=== PATIENT | male | born 2000 | race Caucasian/White ===

== ENCOUNTER 2021-06-04 14:33 | Emergency (ER) | payer OTHER ==
[2021-06-04 14:41] VITALS: BP 135/89; PULSE 70; RESP 17; TEMP 98.4
[2021-06-04 15:10] LABS: Glucose,Whole Blood 74 mg/dL (75-99)
[2021-06-04 15:35] LABS: Glucose,Whole Blood 100 mg/dL (75-99)
[2021-06-04] MEDS ORDERED: SODIUM CHLORIDE 0.9% 1,000 ML IV STA (15:36)
--- NOTE | 2021-06-04 15:43 | ED ---
General Adult HPI - General Chief complaint: Syncope Stated complaint: syncope, hit head Time Seen by Provider: 06/04/21 15:25 Source: patient, family, EMS, RN notes reviewed Mode of arrival: EMS Limitations: no limitations - History of Present Illness Initial comments: 20-year-old underweight white male, alert and oriented 4, presents to the emergency room with his family member after a syncopal episode in the bathroom today. Mother states that she heard him fall in the bathroom when in and his pants were down but he was on the floor blocking the door. When she was able to get in she found that he had a laceration to the back of his head. She states that he was unresponsive for a couple of minutes but then he awoke and was normal. Patient denies any pain or headache. There is a small puncture wound to his occiput. Mother states that he has not been eating well and he has been depressed. He just quit his job and is under a lot of stress. Patient is tearful and admits to being depressed but not suicidal or homicidal. He has not had syncopal episodes in the past he has no history of seizures. Does not take any medicine on a daily basis. -: hour(s) (1) Location: head Radiation: non-radiation Severity scale (1-10): 0 Associated Symptoms: loss of appetite, other (Depression) - Related Data Allergies Allergy/AdvReac Type Severity Reaction Status Date / Time No Known Allergies Allergy Verified 06/04/21 14:41 Review of Systems ROS Statement: Those systems with pertinent positive or pertinent negative responses have been documented in the HPI. ROS Other: All systems not noted in ROS Statement are negative. General Exam Limitations: no limitations General appearance: alert, in no apparent distress Head exam: Present: normocephalic, other (Small puncture wound noted to the occiput no active bleeding) Eye exam: Present: normal appearance, PERRL, EOMI. Absent: scleral icterus, conjunctival injection, periorbital swelling ENT exam: Present: normal exam, normal oropharynx, mucous membranes moist Neck exam: Present: normal inspection, full ROM. Absent: tenderness, meningismus, lymphadenopathy Respiratory exam: Present: normal lung sounds bilaterally. Absent: respiratory distress, wheezes, rales, rhonchi, stridor, chest wall tenderness, accessory muscle use Cardiovascular Exam: Present: regular rate, normal rhythm, normal heart sounds. Absent: systolic murmur, diastolic murmur, rubs, gallop, clicks GI/Abdominal exam: Present: soft, normal bowel sounds. Absent: distended, tenderness, guarding, rebound, rigid Extremities exam: Present: full ROM, normal capillary refill. Absent: tenderness, pedal edema, joint swelling, calf tenderness Back exam: Present: normal inspection, full ROM. Absent: tenderness, CVA tenderness (R), CVA tenderness (L), muscle spasm, paraspinal tenderness, vertebral tenderness, rash noted Expanded Back exam: Present: saddle anesthesia Back exam: Negative Straight Leg Raising: Left, Right Neurological exam: Present: alert, oriented X3, CN II-XII intact Expanded Patient oriented to: Present: person, place, time Speech: Present: fluid speech Cranial nerves: EOM's Intact: Normal, Gag Reflex: Normal, Tongue Deviation: Normal Cerebellar function: Finger to Nose: Normal, Heel to Berger: Normal Motor strength exam: RUE: 5, LUE: 5, RLE: 5, LLE: 5 Eye Response: (4) open spontaneously Motor Response: (6) obeys commands Verbal Response: (5) oriented [place] Total: 15 Psychiatric exam: Present: depressed, other (Quiet). Absent: homicidal ideation, suicidal ideation Skin exam: Present: warm, dry, intact, normal color. Absent: rash, cyanosis, diaphoretic, petechiae, pallor Course Vital Signs 06/04/21 14:34 Temperature 98.4 F Pulse Rate 70 Respiratory 17 Rate Blood Pressure 135/89 O2 Sat by Pulse 100 Oximetry EKG Findings - EKG Results: EKG: sinus rhythm (Ventricular rate 65, DE interval of .114, QRS 0.86, QTC 0.407) Medical Decision Making - Medical Decision Making CBC and electrolytes are unremarkable. Patient's glucose was 74 upon arrival was repeated and 107 in the emergency room. His troponin is negative at 0.012 and his EKG shows sinus rhythm rate [address] elevation. His urine is clear with no ketones. His urine drug screen shows marijuana. CT of the brain shows no acute intracranial process, masses or intracranial hemorrhage. There is no evidence of fracture. Chest x-ray shows lungs that are clear with no evidence of infiltrate or masses. This is likely a vasovagal syncope as patient was using the bathroom at the time. He had no postictal state per the mother. He does admit to depression and not eating well. He denies any suicidal or homicidal ideations. He'll be directed to follow up with his primary care doctor. The puncture wound to his occiput was irrigated and put bacitracin dressing . Patient was given something to eat. His tetanus shot was last upda annette 2 years ago per mom. They'll be directed to follow up with her primary care doctor for continuation of care return to the emergency room with any new or worsening symptoms including seizure activity or altered mental status. - Lab Data Result diagrams: 06/04/21 15:44 06/04/21 15:44 Lab Results 06/04/21 06/04/21 06/04/21 Range/Units 15:08 15:33 15:44 WBC 11.4 H (4.0-11.0) k/uL RBC 5.16 (4.30-5.90) m/uL Hgb 16.4 (13.0-17.5) gm/dL Hct 47.5 (39.0-53.0) % MCV 92.1 (80.0-100.0) fL MCH 31.8 (25.0-35.0) pg MCHC 34.6 (31.0-37.0) g/dL RDW 12.6 (11.5-15.5) % Plt Count 227 (150-450) k/uL MPV 6.5 Neutrophils % 89 % Lymphocytes % 6 % Monocytes % 3 % Eosinophils % 1 % Basophils % 1 % Neutrophils # 10.1 H (1.3-7.7) k/uL Lymphocytes # 0.7 L (1.0-4.8) k/uL Monocytes # 0.4 (0-1.0) k/uL Eosinophils # 0.1 (0-0.7) k/uL Basophils # 0.1 (0-0.2) k/uL PT (9.0-12.0) sec INR (<1.2) APTT (22.0-30.0) sec Sodium (137-145) mmol/L Potassium (3.5-5.1) mmol/L Chloride (98-107) mmol/L Carbon Dioxide (22-30) mmol/L Anion Gap mmol/L BUN (9-20) mg/dL Creatinine (0.66-1.25) mg/dL Est GFR (CKD-EPI)AfAm (>60 ml/min/1.73 sqM) Est GFR (CKD-EPI)NonAf (>60 ml/min/1.73 sqM) Glucose (74-99) mg/dL POC Glucose (mg/dL) 74 L 100 H (75-99) mg/dL POC Glu Print Finisher GABRIELLA VickersorinChela Nicole Calcium (8.4-10.2) mg/dL Magnesium (1.6-2.3) mg/dL Total Bilirubin (0.2-1.3) mg/dL AST (17-59) U/L ALT (4-49) U/L Alkaline Phosphatase (38-126) U/L Troponin I (0.000-0.034) ng/mL Total Protein (6.3-8.2) g/dL Albumin (3.5-5.0) g/dL Urine Color Urine Appearance (Clear) Urine pH (5.0-8.0) Ur Specific Omer (1.001-1.035) Urine Protein (Negative) Urine Glucose (UA) (Negative) Urine Ketones (Negative) Urine Blood (Negative) Urine Nitrite (Negative) Urine Bilirubin (Negative) Urine Urobilinogen (<2.0) mg/dL Ur Leukocyte Esterase (Negative) Urine Opiates Screen (NotDetected) Ur Oxycodone Screen (NotDetected) Urine Methadone Screen (NotDetected) Ur Propoxyphene Screen (NotDetected) Ur Barbiturates Screen (NotDetected) U Tricyclic Antidepress (NotDetected) Ur Phencyclidine Scrn (NotDetected) Ur Amphetamines Screen (NotDetected) U Methamphetamines Scrn (NotDetected) U Benzodiazepines Scrn (NotDetected) Urine Cocaine Screen (NotDetected) U Marijuana (THC) Screen (NotDetected) 06/04/21 06/04/21 06/04/21 Range/Units 15:44 15:44 15:44 WBC (4.0-11.0) k/uL RBC (4.30-5.90) m/uL Hgb (13.0-17.5) gm/dL Hct (39.0-53.0) % MCV (80.0-100.0) fL MCH (25.0-35.0) pg MCHC (31.0-37.0) g/dL RDW (11.5-15.5) % Plt Count (150-450) k/uL MPV Neutrophils % % Lymphocytes % % Monocytes % % Eosinophils % % Basophils % % Neutrophils # (1.3-7.7) k/uL Lymphocytes # (1.0-4.8) k/uL Monocytes # (0-1.0) k/uL Eosinophils # (0-0.7) k/uL Basophils # (0-0.2) k/uL PT 11.5 (9.0-12.0) sec INR 1.1 (<1.2) APTT 19.2 L (22.0-30.0) sec Sodium 142 (137-145) mmol/L Potassium 4.0 (3.5-5.1) mmol/L Chloride 106 (98-107) mmol/L Carbon Dioxide 27 (22-30) mmol/L Anion Gap 9 mmol/L BUN 13 (9-20) mg/dL Creatinine 0.75 (0.66-1.25) mg/dL Est GFR (CKD-EPI)AfAm >90 (>60 ml/min/1.73 sqM) Est GFR (CKD-EPI)NonAf >90 (>60 ml/min/1.73 sqM) Glucose 107 H (74-99) mg/dL POC Glucose (mg/dL) (75-99) mg/dL POC Glu Print Finisher ID Calcium 10.0 (8.4-10.2) mg/dL Magnesium 2.1 (1.6-2.3) mg/dL Total Bilirubin 0.3 (0.2-1.3) mg/dL AST 32 (17-59) U/L ALT 19 (4-49) U/L Alkaline Phosphatase 78 (38-126) U/L Troponin I <0.012 (0.000-0.034) ng/mL Total Protein 7.3 (6.3-8.2) g/dL Albumin 5.2 H (3.5-5.0) g/dL Urine Color Urine Appearance (Clear) Urine pH (5.0-8.0) Ur Specific Omer (1.001-1.035) Urine Protein (Negative) Urine Glucose (UA) (Negative) Urine Ketones (Negative) Urine Blood (Negative) Urine Nitrite (Negative) Urine Bilirubin (Negative) Urine Urobilinogen (<2.0) mg/dL Ur Leukocyte Esterase (Negative) Urine Opiates Screen (NotDetected) Ur Oxycodone Screen (NotDetected) Urine Methadone Screen (NotDetected) Ur Propoxyphene Screen (NotDetected) Ur Barbiturates Screen (NotDetected) U Tricyclic Antidepress (NotDetected) Ur Phencyclidine Scrn (NotDetected) Ur Amphetamines Screen (NotDetected) U Methamphetamines Scrn (NotDetected) U Benzodiazepines Scrn (NotDetected) Urine Cocaine Screen (NotDetected) U Marijuana (THC) Screen (NotDetected) 06/04/21 06/04/21 Range/Units 16:11 16:11 WBC (4.0-11.0) k/uL RBC (4.30-5.90) m/uL Hgb (13.0-17.5) gm/dL Hct (39.0-53.0) % MCV (80.0-100.0) fL MCH (25.0-35.0) pg MCHC (31.0-37.0) g/dL RDW (11.5-15.5) % Plt Count (150-450) k/uL MPV Neutrophils % % Lymphocytes % % Monocytes % % Eosinophils % % Basophils % % Neutrophils # (1.3-7.7) k/uL Lymphocytes # (1.0-4.8) k/uL Monocytes # (0-1.0) k/uL Eosinophils # (0-0.7) k/uL Basophils # (0-0.2) k/uL PT (9.0-12.0) sec INR (<1.2) APTT (22.0-30.0) sec Sodium (137-145) mmol/L Potassium (3.5-5.1) mmol/L Chloride (98-107) mmol/L Carbon Dioxide (22-30) mmol/L Anion Gap mmol/L BUN (9-20) mg/dL Creatinine (0.66-1.25) mg/dL Est GFR (CKD-EPI)AfAm (>60 ml/min/1.73 sqM) Est GFR (CKD-EPI)NonAf (>60 ml/min/1.73 sqM) Glucose (74-99) mg/dL POC Glucose (mg/dL) (75-99) mg/dL POC Glu Print Finisher ID Calcium (8.4-10.2) mg/dL Magnesium (1.6-2.3) mg/dL Total Bilirubin (0.2-1.3) mg/dL AST (17-59) U/L ALT (4-49) U/L Alkaline Phosphatase (38-126) U/L Troponin I (0.000-0.034) ng/mL Total Protein (6.3-8.2) g/dL Albumin (3.5-5.0) g/dL Urine Color Light Yellow Urine Appearance Clear (Clear) Urine pH 7.0 (5.0-8.0) Ur Specific Omer 1.008 (1.001-1.035) Urine Protein Negative (Negative) Urine Glucose (UA) Negative (Negative) Urine Ketones Negative (Negative) Urine Blood Negative (Negative) Urine Nitrite Negative (Negative) Urine Bilirubin Negative (Negative) Urine Urobilinogen <2.0 (<2.0) mg/dL Ur Leukocyte Esterase Negative (Negative) Urine Opiates Screen Not Detected (NotDetected) Ur Oxycodone Screen Not Detected (NotDetected) Urine Methadone Screen Not Detected (NotDetected) Ur Propoxyphene Screen Not Detected (NotDetected) Ur Barbiturates Screen Not Detected (NotDetected) U Tricyclic Antidepress Not Detected (NotDetected) Ur Phencyclidine Scrn Not Detected (NotDetected) Ur Amphetamines Screen Not Detected (NotDetected) U Methamphetamines Scrn Not Detected (NotDetected) U Benzodiazepines Scrn Not Detected (NotDetected) Urine Cocaine Screen Not Detected (NotDetected) U Marijuana (THC) Screen Detected H (NotDetected) Disposition Clinical Impression: Vasovagal syncope, Depressed Disposition: HOME SELF-CARE Condition: Good Additional Instructions: Return to the emergency room with any new or worsening symptoms including headache, seizure activity, chest pain or shortness of breath. Follow-up with the primary care doctor this week. Call the mobile crisis number for any worsening depression or suicidal ideations at [phone]. Is patient prescribed a controlled substance at d/c from ED?: No Referrals: None,Stated [Primary Care Provider] - 1-2 days Eitan Martin MD [STAFF PHYSICIAN] - 1-2 days Time of Disposition: 17:21
[2021-06-04 16:16] LABS: African American GFR (CKD) >90 (>60 ml/min/1.73 sqM); Anion Gap 9 mmol/L; Blood Urea Nitrogen 13 mg/dL (9-20); Carbon Dioxide 27 mmol/L (22-30); Chloride 106 mmol/L (98-107); Glucose 107 mg/dL (74-99); Non-African American GFR(CKD) >90 (>60 ml/min/1.73 sqM); Sodium 142 mmol/L (137-145)
[2021-06-04 16:17] LABS: ALT 19 U/L (4-49); AST 32 U/L (17-59); Albumin 5.2 g/dL (3.5-5.0); Alkaline Phosphatase 78 U/L (38-126); Magnesium 2.1 mg/dL (1.6-2.3); Total Bilirubin 0.3 mg/dL (0.2-1.3); Total Protein 7.3 g/dL (6.3-8.2)
[2021-06-04 16:20] LABS: Basophils # (A) 0.1 k/uL (0-0.2); Basophils % (A) 1 %; Eosinophils # (A) 0.1 k/uL (0-0.7); Eosinophils % (A) 1 %; HCT 47.5 % (39.0-53.0); HGB 16.4 gm/dL (13.0-17.5); Lymphocytes # (A) 0.7 k/uL (1.0-4.8); Lymphocytes % (A) 6 %; MCH 31.8 pg (25.0-35.0); MCHC 34.6 g/dL (31.0-37.0); MCV 92.1 fL (80.0-100.0); Mean Platelet Volume 6.5; Monocytes # (A) 0.4 k/uL (0-1.0); Monocytes % (A) 3 %; Neutrophils # (A) 10.1 k/uL (1.3-7.7); Neutrophils % (A) 89 %; Platelet Count 227 k/uL (150-450); RBC 5.16 m/uL (4.30-5.90); RDW 12.6 % (11.5-15.5); WBC 11.4 k/uL (4.0-11.0)
[2021-06-04] MEDS ORDERED: BACITRACIN OINT 1 EACH PACKET TOPICAL ONE (16:26)
[2021-06-04 16:27] LABS: Appearance,Urine Clear (Clear); Bilirubin,Urine Negative (Negative); Blood,Urine Negative (Negative); Color,Urine Light Yellow; Glucose,Urine (UA) Negative (Negative); Ketones,Urine Negative (Negative); Leukocyte Esterase,Urine Negative (Negative); Nitrite,Urine Negative (Negative); Protein,Urine Negative (Negative); Specific Gravity,Urine 1.008 (1.001-1.035); Urobilinogen,Urine <2.0 mg/dL (<2.0)
[2021-06-04 16:28] LABS: INR 1.1 (<1.2); Prothrombin Time 11.5 sec (9.0-12.0)
[2021-06-04 16:32] LABS: Partial Thromboplastin Time 19.2 sec (22.0-30.0)
[2021-06-04 16:40] LABS: Amphetamine Screen,Urine Not Detected (NotDetected); Barbiturate Screen,Urine Not Detected (NotDetected); Benzodiazepines Screen,Urine Not Detected (NotDetected); Cocaine Screen,Urine Not Detected (NotDetected); Methadone Screen, Urine Not Detected (NotDetected); Opiate Screen,Urine Not Detected (NotDetected); Oxycodone Screen, Urine Not Detected (NotDetected); Phencyclidine Screen,Urine Not Detected (NotDetected); Tricyclic Antidepressant,Urine Not Detected (NotDetected); Urn Cannabinoid Scrn Detected (NotDetected)
--- NOTE | 2021-06-04 16:41 | CT ---
EXAMINATION TYPE: CT brain wo con DATE OF EXAM: 06/04/2021 COMPARISON: None INDICATION: Syncope with posterior injury and laceration. DLP: 1099.4 mGycm, Automated exposure control for dose reduction was used. CONTRAST: None CT of the brain is performed utilizing 3 mm thick sections through the posterior fossa and 3 mm thick sections through the remaining calvarium. Study is performed within 24 hours of arrival to the hosp ital. No abnormal hyperdensity is present to suggest an acute intracranial hemorrhage. No mass lesion is evident. No acute infarcts are evident. Ventricles and sulci are appropriate for the patient age. Paranasal sinuses and mastoid air cells within the [id number] are clear. Soft tissues appear normal. Laceration is not identified. No acute fractures are evident. IMPRESSIONS: 1. No acute intracranial process.
--- NOTE | 2021-06-04 16:48 | XR ---
EXAMINATION TYPE: XR chest 2V DATE OF EXAM: 06/04/2021 COMPARISON: NONE HISTORY: Syncope TECHNIQUE: 2 views FINDINGS: Heart and mediastinum are normal. Lungs are clear. Diaphragm is normal. Bony thorax is inta ct. Pulmonary vascularity is normal. IMPRESSION: Normal chest.
== END 2021-06-04 17:49 | disposition home or self-care (01) ==
LOC: EC 14:33
DX: R55 Syncope and collapse (principal); F32.9 Major depressive disorder, single episode, unspecified; R63.0 Anorexia
CPT/HCPCS: 36415; 70450; 71046; 80053; 80306; 81003; 83735; 84484; 85025; 85610; 85730; 93005; 96360; 99285

== ENCOUNTER 2024-11-16 02:51 | Inpatient (IN) | payer MEDICAID, OTHER ==
--- NOTE | 2024-11-16 04:28 | ED ---
General Adult HPI <Liam Miramontes - Last Filed: 11/16/24 09:39> - General Source: patient Mode of arrival: ambulatory <Triny Cano - Last Filed: 11/18/24 14:51> - General Chief complaint: Psychiatric Symptoms Stated complaint: Petition Time Seen by Provider: 11/16/24 04:02 - History of Present Illness Initial comments: Patient is a 24-year-old gentleman with a past medical history of psychosis PTSD presenting today via [place] [employer] for paranoia. History limited as patient refused to answer questions. Per police, patient had run away from home and stayed the night homeless elder. He claimed that people are following him. He found a cane and took it to local [employer] where he stated that people were trying to follow him, had broken into his house and the cane would be used to defend himself. While awaiting evaluation in the emergency department he became combative with police, tore off his shirt and needed to be placed in handcuffs. (Triny Cano) - Related Data Previous Rx's Medication Instructions Recorded ARIPiprazole [Abilify] 10 mg PO HS 30 Days #30 tab 11/13/24 Melatonin 10 mg PO HS 30 Days #60 tab 11/13/24 Sertraline [Zoloft] 50 mg PO HS 30 Days #30 tab 11/13/24 Allergies Allergy/AdvReac Type Severity Reaction Status Date / Time No Known Allergies Allergy Verified 11/16/24 08:57 Review of Systems ROS Other: All systems not noted in ROS Statement are negative. <Liam Miramontes - Last Filed: 11/16/24 09:39> ROS Other: All systems not noted in ROS Statement are negative. Limitations: ROS unobtainable due to patients medical condition <Triny Cano - Last Filed: 11/18/24 14:51> ROS Statement: Those systems with pertinent positive or pertinent negative responses have been documented in the HPI. Past Medical History Past Medical History: No Reported History Additional Past Medical History / Comment(s): eye issues History of Any Multi-Drug Resistant Organisms: None Reported Past Surgical History: No Surgical Hx Reported Additional Past Surgical History / Comment(s): Polydactyl sx as child to remove extra digit on left thumb of Left hand Past Anesthesia/Blood Transfusion Reactions: No Reported Reaction Past Psychological History: PTSD Smoking Status: Vaper Past Alcohol Use History: Occasional Past Drug Use History: Marijuana - Past Family History Mother History Unknown: Yes <Triny - Last Filed: 11/18/24 14:51> General Exam <Triny Cano - Last Filed: 11/18/24 14:51> - General Exam Comments Initial Comments: Vital signs reviewed General: Well-appearing, nontoxic, no acute distress. Head: Normocephalic, atraumatic Eyes: PERRLA, EOMI ENT: Airway patent Chest: Nonlabored breathing Skin: No visual rash, normal skin tone, small abrasions on heels posteriorly where boots chafed against skin Neuro: Alert, unable to assess orientation given patient refuses to answer questions, no focal neurologic deficits Musculoskeletal: No gross abnormalities, no physical evidence of injuries Psychiatric: Does not make eye contact, does not speak to myself or staff when brought back to room, guarded affect, when handcuffs removed by PD, patient does remain calm (Triny Cano) Course Vital Signs 11/16/24 11/16/24 11/16/24 03:00 06:48 10:48 Temperature 98.4 F 97.1 F L 98.3 F Pulse Rate 121 H 113 H 101 H Respiratory 18 16 16 Rate Blood Pressure 112/78 122/77 106/66 O2 Sat by Pulse 98 97 97 Oximetry Medical Decision Making <Liam Miramontes - Last Filed: 11/16/24 09:39> <Triny Cano - Last Filed: 11/18/24 14:51> - Medical Decision Making Patient signed out to me pending results of EPS evaluation. Was medically cleared by previous provider. EPS evaluated the patient and determined that he does meet inpatient criteria for admission. Patient was already petitioned by police and I completed the clinical certificate. I updated the patient and he was in agreement with the plan. Diagnosis/symptom? @ -Suicidal ideation, acute psychosis Acute, or Chronic, or Acute on Chronic? @ -Acute Uncomplicated (without systemic symptoms) or Complicated (systemic symptoms)? @ -Complicated Side effects of treatment? @ -None Exacerbation, Progression, or Severe Exacerbation] @ -No Poses a threat to life or bodily function? @ -Potentially, yes (Liam Miramontes) Was pt. sent in by a medical professional or institution (, PA, HORSE BUYER, urgent care, hospital, or [facility]...) When possible be specific @ -No Did you speak to anyone other than the patient for history (EMS, parent, family, police, friend...)? What history was obtained from this source @Spoke with police who provided history Did you review nursing and triage notes (agree or disagree)? Why? @ -I reviewed nursing and triage notes Were old charts reviewed (outside hosp., previous admission, EMS record, old EKG, old radiological studies, urgent care reports/EKG's, [facility] records)? Report findings @ -Medical records reviewed reviewed ER note from 11/28 and patient presented for psychiatric symptoms, CT brain done at that time showed no acute process, patient was admitted to psychiatric unit and it appears he was discharged on 11/13/2024, it also appears he presented on 11/15/2024 for suicidal symptoms and chest tightness, chest x-ray done at the time showed no acute process patient ultimately discharged Differential Diagnosis (chest pain, altered mental status, abdominal pain women, abdominal pain men, vaginal bleeding, weakness, fever, dyspnea, syncope, headache, dizziness, GI bleed, back pain, seizure, CVA, palpatations, mental health, musculoskeletal)? @ -Differential Mental Health Depression, anxiety, bipolar, psychosis, schizophrenia, borderline personality, situational depression, adjustment disorder, behavioral disorder, brain tumor, malingering, substance abuse, encephalopathy, medication reaction, dementia, hypothyroidism, degenerative neurologic disorder, lupus.... This is not meant to be all-inclusive list EKG interpreted by me (3pts min.). @ -As above X-rays interpreted by me (1pt min.). @ -None done CT interpreted by me (1pt min.). @ -None done U/S interpreted by me (1pt. min.). @ -None done What testing was considered but not performed or refused? (CT, X-rays, U/S, labs)? Why? @ -None What meds were considered but not given or refused? Why? @ -None Did you discuss the management of the patient with other professionals (professionals i.e. , PA, HORSE BUYER, lab, RT, psych nurse, health and social care teacher, public relations counselor, teacher, special forces officer, housing case manager)? Give summary @ -No Was smoking cessation discussed for >3mins.? @ -No Was critical care preformed (if so, how long)? @ -No Were there social determinants of health that impacted care today? How? (Homelessness, low income, unemployed, alcoholism, drug addiction, transportation, low edu. Level, literacy, decrease access to med. care, custodial, rehab)? @ -No Was there de-escalation of care discussed even if they declined (Discuss DNR or withdrawal of care, Hospice)? @ -No What co-morbidities impacted this encounter? (DM, HTN, Smoking, COPD, CAD, Cancer, CVA, ARF, Chemo, Hep., AIDS, mental health diagnosis, sleep apnea, morbid obesity)? @Psychosis, PTSD Was patient admitted / discharged? Hospital course, mention meds given and route, prescriptions, significant lab abnormalities, going to OR and other per tinent info. @ -Sgned out to oncoming physician pending EPS eval- Patient is a 24 y/o male PMH psychosis, PTSD, recent admission for mental health evaluation and treatment, presenting in police custody after being found at a gas station with a "cane" that he was planning to use as defense for the people that are "following him". While in waiting room awaiting rooming, pt became angry, confrontational, and tore his shirt off, prompting PD to place pt in handcuffs. Pt brought back to his room in handcuffs and seen immediately by myself. At this time, pt is not making eye contact or answering any questions. Removed from handcuffs and remained very still in bed. Exam was limited in order to maintaini staff safety, as pt was recently combative with PD. Pt has hx of similar and has no evidence of injury. Mildly tachycardic on arrival, suspect 2/2 agitation, therefor I do not feel additional labs or imaging are indicated currently. KASSIE 0.00. Pt medically cleared for EPS eval. Of note, as I went to check on pt later, he appeared to be tremulous and appearing anxious and fearful, hiding his head under his blanket, so he was given PO xanax and appeared much more comfortable afterwards. Pt signed out to oncoming physician, Dr. Miramontes, pending EPS eval. (Triny Cano) - Lab Data Lab Results 11/16/24 11/16/24 Range/Units 05:00 08:09 TSH 1.140 (0.465-4.680) mIU/L Influenza Type A (PCR) Not Detected (Not Detectd) Influenza Type B (PCR) Not Detected (Not Detectd) RSV (PCR) Not Detected (Not Detectd) SARS-CoV-2 (PCR) Not Detected (Not Detectd) Disposition <Liam Miramontes - Last Filed: 11/16/24 09:39> <Triny Cano - Last Filed: 11/18/24 14:51> Clinical Impression: Paranoia (psychosis), Acute psychosis, Suicidal ideation Disposition: TRANSFER TO PSYCH HOSP/UNIT Condition: Stable
[2024-11-16 05:47] LABS: Influenza A Not Detected (Not Detectd); Influenza B Not Detected (Not Detectd); RSV Not Detected (Not Detectd)
[2024-11-16] MEDS: ALPRAZolam 1 MG TAB PO STA (06:12)
[2024-11-16] MEDS ORDERED: MAG HYDROX/AL HYDROX/SIMETH 355 ML BOTTLE PO PRN (11:15)
[2024-11-16] MEDS ORDERED: ACETAMINOPHEN TAB 325 MG TAB PO PRN (11:15)
[2024-11-16] MEDS ORDERED: MAGNESIUM HYDROXIDE 2,400 MG/30 ML CUP PO PRN (11:15)
[2024-11-16] MEDS: haloperidoL 5 MG TAB PO PRN (12:17)
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
[2024-11-16 20:11] LABS: Urine Alcohol Negative (Negative); Urine Barbiturate Negative (Negative); Urine Cocaine Negative (Negative); Urine Methadone Negative (Negative); Urine Opiates Negative (Negative); Urine Phencyclidine Negative (Negative)
[2024-11-16] MEDS: PALIPERIDONE 3 MG TAB.ER.24 PO SCH (20:36)
[2024-11-16] MEDS: SERTRALINE 50 MG TAB PO SCH (20:36)
[2024-11-16] MEDS: MELATONIN 5 MG TABLET PO SCH (20:36)
[2024-11-16] MEDS ORDERED: ARIPiprazole 10 MG TAB PO SCH (21:00)
[2024-11-17] MEDS: PALIPERIDONE 3 MG TAB.ER.24 PO SCH (10:11)
[2024-11-17 11:23] VITALS: BMI 17.8
--- NOTE | 2024-11-17 11:52 | P.PN ---
Progress Note - Text Progress Note Date: 11/17/24 Interval History: Patient was seen laying in bed and was directable and agreeable to speak with policy writer in the room. Some increase in latency was noted, flat affect. He continues to report paranoia, denying any improvement since yesterday. He reports decreased appetite but was unable to express how he slept overnight. He also was unable to report any auditory hallucinations however he did mention suicidal ideations today. Patient did appear depressed with low energy and mood, largely isolative to his room. He did receive as needed Haldol yesterday for his paranoia however he was unable to express any benefits from this medication. At this time patient denies any homicidal ideations, intent or plan. Patient denies any visual hallucinations and denies any paranoia or delusions. Patient denies any side effects from the medications and has been compliant with meds. Mental Status Exam: General Appearance: Patient appears to be stated age is fatigued but directable, and cooperative. Behavior: Patient is calmly laying without any agitated behavior. Speech: Patient's speech is fluent and nonpressured. Mood/Affect: Mood is low, affect is congruent and constricted. Suicidality/Homicidality: Patient denies having any homicidal ideation intent or plan. He is reporting suicidal ideations today Perceptions: Patient denies any visual hallucinations however he reports being unsure about auditory hallucinations, he did not appear internally preoccupied Though content/process: There is no evidence of any delusional thought content and thought process is linear. He does report paranoia Memory and concentration: AOX3, grossly intact for the purposes of this session Judgment and insight: Improving mildly Assessment Schizoaffective disorder, depressed type History of PTSD Plan: -Patient continues to meet criteria for inpatient psychiatric admission for symptom stabilization and safety. Patient has not signed adult voluntary form and medication consent and was placed in patient's chart. -Medications: Increase Invega to 3 mg twice daily for psychosis, increase Zoloft to 100 mg at bedtime for depression, continue melatonin 10 mg at bedtime for insomnia. Ultimate plan is to transition to Invega Sustenna given patient's history of nonadherence -When necessary Ativan and Haldol for agitation/aggression. -Labs: Reviewed -SW on board for discharge planning. Encouraged the patient to participate in milieu. Currently awaiting deferral with vice president quality assurance and court date.
--- NOTE | 2024-11-17 13:10 | P.CONS ---
History of Present Illness - Reason for Consult Consult date: 11/17/24 medical management Requesting physician: Noemi Rojo - History of Present Illness This is a pleasant 24-year-old male with medical history significant for PTSD. Patient comes in brought in by police secondary to thoughts of paranoia and feeling people are following him. During my assessment patient has not elaborated on any of the reasons leading up to his admission. He denies any suicidal or homicidal ideations currently. He has no acute complaints no chest pain or shortness of breath no nausea vomiting or diarrhea. He is awake alert and oriented he is appropriate. Patient was recently admitted for mental health treatment and evaluation however was noncompliant with his [facility] mental health follow-up on discharge. He states that currently he is homeless and does not have much family support at this time. his UDS was positive for benzodiazepines. He is currently afebrile 97.6, heart rate 107, blood pressure 130/80, 97% on room air. REVIEW OF SYSTEMS: CONSTITUTIONAL: No fever, no malaise, no fatigue. HEENT: No recent visual problems or hearing problems. Denied any sore throat. CARDIOVASCULAR: No chest pain, orthopnea, PND, no palpitations, no syncope. PULMONARY: No shortness of breath, no cough, no hemoptysis. GASTROINTESTINAL: No diarrhea, no nausea, no vomiting, no abdominal pain. NEUROLOGICAL: No headaches, no weakness, no numbness. HEMATOLOGICAL: Denies any bleeding or petechiae. GENITOURINARY: Denies any burning micturition, frequency, or urgency. MUSCULOSKELETAL/RHEUMATOLOGICAL: Denies any joint pain, swelling, or any muscle pain. ENDOCRINE: Denies any polyuria or polydipsia. The rest of the 14-point review of systems is negative. PHYSICAL EXAMINATION: GENERAL: The patient is alert and oriented x3, not in any acute distress. Well developed, well nourished. HEENT: Pupils are round and equally reacting to light. EOMI. No scleral icterus. No conjunctival pallor. Normocephalic, atraumatic. No pharyngeal erythema. No thyromegaly. CARDIOVASCULAR: S1 and S2 present. No murmurs, rubs, or gallops. PULMONARY: Chest is clear to auscultation, no wheezing or crackles. ABDOMEN: Soft, nontender, nondistended, normoactive bowel sounds. No palpable organomegaly. MUSCULOSKELETAL: No joint swelling or deformity. EXTREMITIES: No cyanosis, clubbing, or pedal edema. NEUROLOGICAL: Gross neurological examination did not reveal any focal deficits. SKIN: No rashes. Assessment and Plan Schizoaffective disorder Depression Sinus tachycardia PTSD Gi prophylaxis Full Code Plan Medications per psychiatry Check TSH Level Thank you kindly for this consultation we will follow along as needed this hospital stay. The impression and plan of care has been dictated by Maryellen Valentino, Nurse Practitioner as directed. Dr. Mario MD I have performed a history and physical examination and medical decision making of this patient, discussed the same with the dictator, and agree with the dictators assessment and plan as written, documented as a scribe. Based on total visit time, I have performed more than 50% of this visit. Past Medical History Past Medical History: No Reported History Additional Past Medical History / Comment(s): eye issues History of Any Multi-Drug Resistant Organisms: None Reported Past Surgical History: No Surgical Hx Reported Additional Past Surgical History / Comment(s): Polydactyl sx as child to remove extra digit on left thumb of Left hand Past Anesthesia/Blood Transfusion Reactions: No Reported Reaction Past Psychological History: PTSD Smoking Status: Never smoker Past Alcohol Use History: Occasional Past Drug Use History: None Reported - Past Family History Mother History Unknown: Yes Medications and Allergies Home Medications Medication Instructions Recorded Confirmed Type ARIPiprazole [Abilify] 10 mg PO HS 30 Days #30 tab 11/13/24 11/16/24 Rx Melatonin 10 mg PO HS 30 Days #60 tab 11/13/24 11/16/24 Rx Sertraline [Zoloft] 50 mg PO HS 30 Days #30 tab 11/13/24 11/16/24 Rx Allergies Allergy/AdvReac Type Severity Reaction Status Date / Time No Known Allergies Allergy Verified 11/16/24 08:57 Physical Exam Vitals: Vital Signs Temp Pulse Resp BP Pulse Ox 11/17/24 10:11 98.5 F 139 H 117/78 97 11/16/24 13:09 97.6 F 107 H 20 130/80 97 Intake and Output 11/16/24 11/17/24 11/17/24 22:59 06:59 14:59 Other: Weight 48.625 kg Results Labs: Abnormal Lab Results - Last 24 Hours (Table) 11/16/24 Range/Units 10:53 U Benzodiazepines Scrn Positive A (Negative) Assessment and Plan Time with Patient: Less than 30
[2024-11-17] MEDS: SERTRALINE 100 MG TAB PO SCH (20:34)
[2024-11-17] MEDS: LORazepam 1 MG TAB PO PRN (20:36)
--- NOTE | 2024-11-18 13:28 | P.PN ---
Progress Note - Text Progress Note Date: 11/18/24 Dictation was produced using [employer] dictation software. Please excuse any grammatical, word or spelling errors. Interval history: Patient was seen in his room and was directable and agreeable to speak with the racebook writer in his room for psychiatric follow-up. The pt states that he is feeling fine today, reported that his mood today is "alright." He reported depression and anxiety to be at the moderate side, he rated depression at 5 per 10, anxiety at 6-7 per 10, the patient appeared depressed and has a flat and constricted affect. He reported that he still having fleeting suicidal thoughts however denied any intention or plan, hide any homicidal thoughts. Patient was encouraged to let the staff know if ever does suicidal thoughts increase in intensity. He reported sleep to be improving and reported that he feels the medication are helping. Admitted to good appetite. He denied any current auditory or visual hallucination, however he seemed to be paranoid a little. He is compliant with his medication, denied any current side effects. Denied any muscle stiffness, rigidity, abnormal movement, or drooling. Patient was encouraged to go out of his room, be social with staff and peers and attend groups. Mental status exam: General Appearance: Patient appears to be stated age is fatigued but directable, and cooperative. Behavior: Patient is calmly sitting at the side of his bed without any agitated behavior. Speech: Patient's speech is fluent and nonpressured. Mood/Affect: Mood is low, affect is flat, congruent and constricted. Suicidality/Homicidality: Patient denies having any homicidal ideation intent or plan. He is reporting fleeting suicidal ideations without any intention or plan Perceptions: Patient denies any visual hallucinations or auditory hallucinations, he did not appear internally preoccupied Though content/process: There is no evidence of any delusional thought content and thought process is linear. He appeared a little bit paranoid Memory and concentration: AOX3, grossly intact for the purposes of this session Judgment and insight: Improving mildly Assessment Schizoaffective disorder, depressed type History of PTSD Assessment/Plan: Continue with current diagnosis. Patient continues to meet criteria for inpatient psychiatric admission for symptom stabilization and safety. Patient will be maintained on current psychotropic medication regimen, will continue with Invega 3 mg p.o. twice daily which was increased yesterday, and Zoloft 100 mg p.o. at bedtime which was increased also yesterday, and melatonin 10 mg p.o. chest. No changes today. Monitor for medication compliance and for any psychotropic medication side effects. Will continue to monitor ongoing response to treatment. Encouraged participation in milieu.
--- NOTE | 2024-11-19 11:52 | P.PN ---
Progress Note - Text Progress Note Date: 11/19/24 Dictation was produced using [employer] dictation software. Please excuse any grammatical, word or spelling errors. Interval history: Patient was seen in his room and was directable and agreeable to speak with the fiction and nonfiction prose writer in his room for psychiatric follow-up. The pt states that he is feeling okay today. He states that he still have moderate depression and anxiety which he rated at 56/10 for both. He denied any current suicidal, self-harm or homicidal thoughts or behavior, intention or plan. Denied any current auditory or visual hallucination. Patient admitted to good sleep last night and admitted to good appetite. Reported that he has been compliant with his medication, denied any current side effects, denied any muscle stiffness, rigidity, abnormal movement, or drooling. Patient was a little bit more open and was able to speak about the reason for his hospitalization, reported that he had a meltdown and was angry at the police. States that he lives with his mother and reported that she is not supportive, reported that he was hospitalized twice before in the mental hospital due to anger related issues. States that he does not have a job and reported that he was laid off from [employer] last January and elaborate that was due to mental health issues. Patient was encouraged to go out of his room, attend groups and attend to his ADLs. Mental status exam: General Appearance: Patient appears to be stated age, directable, and cooperative. Behavior: Patient is calmly sitting at the side of his bed without any agitated behavior. Speech: Patient's speech is fluent and nonpressured. Slow to answer at time Mood/Affect: Mood is down, affect is flat, congruent and constricted. Suicidality/Homicidality: Patient denies having any homicidal ideation intent or plan. Denied any current suicidal ideations, intention or plan Perceptions: Patient denies any visual hallucinations or auditory hallucinations, he did not appear internally preoccupied Though content/process: There is no evidence of any delusional thought content and thought process is linear. He appeared a little bit paranoid Memory and concentration: AOX3, grossly intact for the purposes of this session Judgment and insight: Improving mildly Assessment Schizoaffective disorder, depressed type History of PTSD Assessment/Plan: Continue with current diagnosis. Patient continues to meet criteria for inpatient psychiatric admission for symptom stabilization and safety. Patient will be maintained on current psychotropic medication regimen, will continue with Invega 3 mg p.o. twice daily which was increased on Wednesday, patient may benefit from transition to long-acting injectable in the near future to ensure compliance. Zoloft 100 mg p.o. at bedtime was increased on Wednesday, and melatonin 10 mg p.o. hs. No changes today. Monitor for medication compliance and for any psychotropic medication side effects. Will continue to monitor ongoing response to treatment. Encouraged participation in milieu.
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
[2024-11-20] MEDS: PALIPERIDONE 3 MG TAB.ER.24 PO SCH (20:34)
--- NOTE | 2024-11-21 12:12 | P.PN ---
Progress Note - Text Progress Note Date: 11/21/24 Interval History: Patient was seen laying in bed and was directable and agreeable to speak with typewriter assembly and parts inspector in the office. He reports feeling the same as yesterday, reporting mild paranoia. He reports sleeping well. He has not spoken to his aunt. Patient did report finger spasms as well as tongue spasms however AIMs did not reveal any abnormal movements or muscle rigidity with a score of 1 given patient's awareness of this. Discussed with patient regarding weighing the risks versus benefits with continuing this medication along with mild subjective movements that were not evident on examination. At this time patient denies any suicidal or homicidal ideations, intent or plan. Patient denies any auditory, visual hallucinations and denies any delusions. Patient denies any side effects from the medications and has been compliant with meds. Mental Status Exam: General Appearance: Patient appears to be stated age is alert, directable, and cooperative. Behavior: Patient is calmly seated without any agitated behavior. Speech: Patient's speech is fluent and nonpressured. Increased latency improving Mood/Affect: Mood is improving mildly, affect is congruent and constricted. Suicidality/Homicidality: Patient denies having any suicidal or homicidal ideation intent or plan. Perceptions: Patient denies any visual hallucinations and denies any auditory hallucinations Though content/process: There is no evidence of any delusional thought content and thought process is linear, mild paranoia evident. Memory and concentration: AOX3, grossly intact for the purposes of this session Judgment and insight: Improving mildly Assessment Schizoaffective disorder, depressed type History of PTSD Plan: -Patient continues to meet criteria for inpatient psychiatric admission for symptom stabilization and safety. Patient has not signed adult voluntary form and medication consent and was placed in patient's chart. -Medications: Continue Invega 3 mg daily and 6 mg at bedtime, patient to receive first loading dose of Invega Sustenna tomorrow. Continue Zoloft 100 mg at bedtime for depression -When necessary Ativan and Haldol for agitation/aggression. -Labs: Reviewed -SW on board for discharge planning. Encouraged the patient to participate in milieu. Patient signed deferral last week. Anticipate discharge early next week, will explore options as patient was living independently however this has been an ongoing trigger for patient. [facility] intake set for early next week prior to discharge.
--- NOTE | 2024-11-22 11:44 | P.PN ---
Progress Note - Text Progress Note Date: 11/22/24 Interval History: Patient was seen laying in bed and was directable and agreeable to speak with caption writer in the office. He denied any abnormal movements or muscle rigidity today. Discharge planning was discussed with patient as he continues to express feeling unsafe to return home alone. Attempted to educate patient on his new change in medications and how these unsafe feelings might subside however patient expressed a desire to return to a [place] [facility] instead so that he is not alone. Discussed with patient some of the barriers regarding finding an alternative housing including no income and he was encouraged to continue to explore alternative routes with the [facility] team upon discharge. He does report the resurfacing of suicidal thoughts regarding the stressor however he was reminded of this being temporary. Patient will be provided mobile crisis number if he begins feeling unsafe again at the [place] [facility]. [facility] will do their intake on the unit prior to discharge. At this time patient denies any homicidal ideations, intent or plan. Patient denies any auditory, visual hallucinations and denies any paranoia or delusions. Patient denies any side effects from the medications and has been compliant with meds. Mental Status Exam: General Appearance: Patient appears to be stated age is alert, directable, and cooperative. Behavior: Patient is calmly seated without any agitated behavior. Speech: Patient's speech is brief, low volume and nonpressured. Mood/Affect: Mood is improving mildly, affect is congruent and constricted. Suicidality/Homicidality: Patient denies having any homicidal ideation intent or plan. He does report suicidal thoughts, passive in nature no intent Perceptions: Patient denies any visual hallucinations and denies any auditory hallucinations Though content/process: There is no evidence of any delusional thought content and thought process is linear and logical. Paranoia lessening Memory and concentration: AOX3, grossly intact for the purposes of this session Judgment and insight: Improving mildly Assessment Schizoaffective disorder, depressed type History of PTSD Plan: -Patient continues to meet criteria for inpatient psychiatric admission for symptom stabilization and safety. Patient has not signed adult voluntary form and medication consent and was placed in patient's chart. -Medications: Patient to receive first loading dose of Invega Sustenna 234 mg IM today and will receive the second loading dose over the weekend. Continue oral Invega 3 mg daily and 6 mg at bedtime in the interim, Zoloft 100 mg at bedtime for depression, melatonin 10 mg at bedtime for insomnia -When necessary Ativan and Haldol for agitation/aggression. -Labs: Reviewed -SW on board for discharge planning. Encouraged the patient to participate in milieu. Patient signed deferral past week. Anticipate discharge to [facility] early next week. [facility] intake scheduled prior to discharge
[2024-11-22] MEDS: PALIPERIDONE IM 234 MG/1.5 ML SYG IM ONE (13:23)
--- NOTE | 2024-11-23 12:24 | P.PN ---
Progress Note - Text Progress Note Date: 11/23/24 Interval History: Patient was seen in his room and was directable and agreeable to speak with wr iter in the office. He reports tolerating the shot well yesterday only reporting arm soreness. He states he has spoken to his aunt and that things are well between them. She reportedly came to see him during visitation yesterday. He reports being unsure about attending [facility] for more engagement upon discharge however he was encouraged to at least explore this option. Patient otherwise continues to be isolative to his room, displaying prominent negative symptoms. He continues to express a desire to go to a assisted upon discharge. Reminded him of the crisis number to contact if he feels unsafe there and that he will be connected with [facility] prior to discharge. At this time patient denies any suicidal or homicidal ideations, intent or plan. Patient denies any auditory, visual hallucinations and denies any paranoia or delusions. Patient denies any side effects from the medications and has been compliant with meds. Mental Status Exam: General Appearance: Patient appears to be stated age is alert, directable, and cooperative. Behavior: Patient is calmly seated without any agitated behavior. There is psychomotor slowing Speech: Patient's speech is fluent and nonpressured. Mood/Affect: Mood is improving mildly, affect is congruent and constricted. Suicidality/Homicidality: Patient denies having any suicidal or homicidal ideation intent or plan. Perceptions: Patient denies any visual hallucinations and denies any auditory hallucinations Though content/process: There is no evidence of any delusional thought content and thought process is linear. Memory and concentration: AOX3, grossly intact for the purposes of this session Judgment and insight: Improving mildly Assessment Schizoaffective disorder, depressed type History of PTSD Plan: -Patient continues to meet criteria for inpatient psychiatric admission for symptom stabilization and safety. Patient has not signed adult voluntary form and medication consent and was placed in patient's chart. -Medications: Invega Sustenna to 34 mg IM given yesterday, second loading dose of 156 mg IM to be given over the weekend. Continue oral Invega 3 mg daily and 6 mg at bedtime in the interim, Zoloft 100 mg at bedtime for depression, melatonin 10 mg at bedtime for insomnia -When necessary Ativan and Haldol for agitation/aggression. -Labs: Reviewed -SW on board for discharge planning. Encouraged the patient to participate in milieu. Patient signed deferral last week. Anticipate discharge to assisted early next week. [facility] intake scheduled prior to discharge
--- NOTE | 2024-11-24 11:18 | P.PN ---
Progress Note - Text Progress Note Date: 11/24/24 Interval History: Patient was seen in bed and was directable and agreeable to speak with pattern chart writer in the office. He reports improvement in terms of his arm soreness and muscle twitching. He inquired a list of shelters in the area as he wished to be discharged to upon discharge. He reports good sleep without melatonin and thus this will be discontinued as he declined taking this for the past 2 nights. At this time patient denies any suicidal or homicidal ideations, intent or plan. Patient denies any auditory, visual hallucinations and denies any paranoia or delusions. Patient denies any side effects from the medications and has been compliant with meds. Mental Status Exam: General Appearance: Patient appears to be stated age is alert, directable, and cooperative. Behavior: Patient is calmly seated without any agitated behavior. There is psychomotor slowing Speech: Patient's speech is fluent and nonpressured. Mood/Affect: Mood is improving mildly, affect is congruent and flat. Suicidality/Homicidality: Patient denies having any suicidal or homicidal ideation intent or plan. Perceptions: Patient denies any visual hallucinations and denies any auditory hallucinations Though content/process: There is no evidence of any delusional thought content and thought process is linear and goal-directed. Memory and concentration: AOX3, grossly intact for the purposes of this session Judgment and insight: Improving mildly Assessment Schizoaffective disorder, depressed type History of PTSD Plan: -Patient continues to meet criteria for inpatient psychiatric admission for symptom stabilization and safety. Patient has not signed adult voluntary form and medication consent and was placed in patient's chart. -Medications: Invega Sustenna 234 mg IM given on Wednesday, next loading dose of 156 mg IM to be given on Wednesday. Decrease oral Invega to 3 mg daily, continue Zoloft 100 mg at bedtime for depression, discontinue melatonin 10 mg at bedtime for insomnia -When necessary Ativan and Haldol for agitation/aggression. -Labs: Reviewed -SW on board for discharge planning. Encouraged the patient to participate in milieu. Patient deferred. Anticipate discharge to [facility] on Wednesday. [facility] intake will occur prior to discharge.
--- NOTE | 2024-11-25 10:48 | P.PN ---
Progress Note - Text Progress Note Date: 11/25/24 Interval history: Patient was seen wandering the hallways and was directable and agreeable to s peak with typewriter repairer. Patient was fairly concrete, superficial with typewriter repairer. He displayed no irritability not responding to nerve stimuli. Has been taking his medications. Claims that he stays up most of the night and likes to sleep during the day. Claims that he has been mainly keeping himself. Was fairly concrete, has been eating well. At this time patient denies any suicidal or homicidal ideations intent or plan. Denies any Auditory or visual hallucinations. Patient denies any side effects from the medications and has been compliant with meds. Mental status exam: General Appearance: Patient appears to be short in stature, thin, shaved head, stated age is alert, directable, and cooperative. Behavior: No agitated behavior. Patient is calm and directable, superficial Speech: Patient's speech is fluent and nonpressured. [place] Mood/Affect: Mood is improving mildly, affect is congruent and constricted. Suicidality/Homicidality: Patient denies having any suicidal or homicidal geovany ation intent or plan. Perceptions: Patient denies any auditory or visual hallucinations. Though content/process: There is no evidence of any delusional thought content and thought process is linear and goal-directed. Fairly superficial Memory and concentration: AOX3, grossly intact for the purposes of this session Judgment and insight: improving mildly Assessment/Plan: Continue with current diagnosis. Patient continues to meet criteria for inpatient psychiatric admission for symptom stabilization and safety. Patient will be maintained on current psychotropic medication regimen, changed paliperidone to nightly dosing. Monitor for medication compliance and for any psychotropic medication side effects. Will continue to monitor ongoing response to treatment. Encouraged participation in milieu.
[2024-11-25] MEDS: PALIPERIDONE 3 MG TAB.ER.24 PO SCH (20:25)
--- NOTE | 2024-11-26 10:39 | P.PN ---
Progress Note - Text Progress Note Date: 11/26/24 Interval history: Patient was seen wandering the hallways and was directable and agreeable to s peak with freelance copywriter. he continues to mainly keep to himself. states that he is doing fair today. Patient was fairly concrete, superficial with freelance copywriter. He displayed no irritability not responding to internal stimuli. Has been taking his medications. claims that he likes sleeping during the day. Was fairly concrete, has been eating well. At this time patient denies any suicidal or homicidal ideations intent or plan. Denies any Auditory or visual hallucinations. Patient denies any side effects from the medications and has been compliant with meds. Mental status exam: General Appearance: Patient appears to be short in stature, thin, shaved head, stated age is alert, directable, and cooperative. Behavior: No agitated behavior. Patient is calm and directable, superficial Speech: Patient's speech is fluent and nonpressured. [place], improving mildly Mood/Affect: Mood is improving mildly, affect is congruent and constricted. improving mildly Suicidality/Homicidality: Patient denies having any suicidal or homicidal ideation intent or plan. Perceptions: Patient denies any auditory or visual hallucinations. Though content/process: There is no evidence of any delusional thought content and thought process is linear and goal-directed. Fairly superficial Memory and concentration: AOX3, grossly intact for the purposes of this session Judgment and insight: improving mildly Assessment/Plan: Continue with current diagnosis. Patient continues to meet criteria for inpatient psychiatric admission for symptom stabilization and safety. Patient will be maintained on current psychotropic medication regimen. Monitor for medication compliance and for any psychotropic medication side effects. Will continue to monitor ongoing response to treatment. Encouraged participation in milieu.
[2024-11-26] MEDS: PALIPERIDONE IM 156 MG/ML SYG IM ONE (13:34)
[2024-11-27 07:22] VITALS: BP 125/80; PULSE 102; RESP 16; TEMP 98
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
== END 2024-11-27 13:31 | disposition home or self-care (01) | DRG 761 ==
LOC: EC 02:51 → 3MHU 10:21
PROVIDERS: ADMIT Psychiatry & Neurology Psychiatry; ATTEND Psychiatry & Neurology Psychiatry
DX: F25.1 Schizoaffective disorder, depressive type (principal); R45.851 Suicidal ideations; F17.290 Nicotine dependence, other tobacco product, uncomplicated; T50.906A Underdosing of unspecified drugs, medicaments and biological substances, initial encounter; F43.10 Post-traumatic stress disorder, unspecified; Z56.0 Unemployment, unspecified; Z91.52 Personal history of nonsuicidal self-harm; Z91.128 Patient's intentional underdosing of medication regimen for other reason; Z81.8 Family history of other mental and behavioral disorders; Z79.899 Other long term (current) drug therapy; Z91.198 Patient's noncompliance with other medical treatment and regimen for other reason; Z63.8 Other specified problems related to primary support group; Z59.89 Other problems related to housing and economic circumstances
CPT/HCPCS: 80306; 82075; 84443; 87636; 99285